=== PATIENT | male | born 1960 | race Caucasian/White ===

== ENCOUNTER 2017-05-15 09:22 | Day surgery (SDC) | payer OTHER, SELFPAY ==
[2017-05-15] VITALS (8 sets, daily range): BP systolic 116–153; BP diastolic 65–110; PULSE 85–102; RESP 16; TEMP 36.7–37.1; O2SAT 93–100; BMI 27.9
--- NOTE | 2017-05-15 06:30 | RAD_ITS ---
STUDY: X-RAY - RIGHT WRIST REASON FOR EXAM: Male, 56 years old. Intraoperative nondiagnostic digital images of ORIF of right wrist. TECHNIQUE: 2 intraoperative nondiagnostic digital view(s) of the wrist were obtained. COMPARISON: April 29, 2017 FINDINGS: Volar plate-screw fixation of the distal radius is present. RAD/Wrist min 3 Views IMPRESSION: Intraoperative digital nondiagnostic documentation images. Electronically Signed: Jaron Sagastume MD at 14:12 EST , Service support ,
--- NOTE | 2017-05-15 09:30 | EKG12_ITS ---
Test Reason : Blood Pressure : / mmHG Vent. Rate : 086 BPM Atrial Rate : 086 BPM P-R Int : 166 ms QRS Dur : 090 ms QT Int : 366 ms P-R-T Axes : 047 -13 020 degrees QTc Int : 437 ms Normal sinus rhythm Normal ECG When compared with ECG of 05-FEB-2012 08:26, No significant change was found Confirmed by GEOVANNI JOSHI ([id number]), graphic editor PAVAN GUMAAN ([id number]) on 05/16/2017 1:34:18 PM Referred By: Rose Main Confirmed By:GEOVANNI JOSHI
[2017-05-15 09:56] LABS: Hematocrit 47.8 % (40-54); Mean Corp Hgb Conc 33.5 g/gl (32-36); Mean Corpuscular Hgb 29.7 pg (27.0-32.0); Mean Corpuscular Volume 88.8 fL (80-94); Mean Platelet Vol. 10.3 fl (6.2-12.0); Platelet Count 261 K/mm3 (150-450); RBC Distribution Width CV 13.1 % (11.6-14.6); RBC Distribution Width SD 42.2 fl (35.1-43.9); Red Blood Count 5.38 M/mm3 (4.6-6.2)
[2017-05-15 09:59] LABS: Scan Indicated on CBC? Y/N NO
[2017-05-15 10:01] LABS: Partial Thromboplast Time 32.2 Seconds (24.1-36.2)
[2017-05-15 10:08] LABS: AST(SGOT) 17 U/L (15-37); Alanine Aminotransfer ALT/SGPT 29 U/L (12-78); Albumin, Serum 4.2 g/dL (3.4-5.0); Alkaline Phosphatase 153 U/L (45-117); Bilirubin, Direct 0.18 mg/dL (0.00-0.30); Globulin 3.7 g/dL (2.2-4.2); Protein, Total 7.9 g/dL (6.4-8.2)
[2017-05-15] MEDS: Clindamycin 900 MG/50 ML BAG 75 MG IV (10:33)
--- NOTE | 2017-05-15 10:38 | PCM.DC.ORTHO ---
Discharge Diet: No Restrictions - leave dressing in place, do not remove unless gets wet/dirty, follow up in office in 2 weeks, move fingers as much as possible and elevate hand above heart, call with concerns Discharge Activity: May Not Drive May shower in (days): 1 Ice area for (Minutes): 20 - Every hour while awake. Weight Bearing Status: Weight bearing as tolerated Keep extremity elevated above heart level: Operative Extremity Call your doctor if your incision/area has: Continuous Slow Oozing, Sudden Increased Bleeding, Increased Pain/ Swelling, Increased Redness, Foul Smelling Discharge Call your doctor if you observe: Fever of 101 or Higher, Coldness, Increased Pain, Numbness or Tingling, Change in Color, Calf discomfort Allergies/Adverse Reactions: Allergies Penicillins [PCN] Allergy (Verified 05/14/17 12:01) Swelling Medications to take at Discharge amlodipine 5 mg tablet 5 mg PO QDAY 05/03/17 ibuprofen 600 mg tablet 600 mg PO ONCE PRN 05/03/17 montelukast 10 mg tablet 10 mg PO DAILY 05/10/17 Albuterol Inhaler [Ventolin Hfa (SP)] 1 - 2 puff INHALATION Q4H PRN PRN 05/14/17 Oxycodone HCl/Acetaminophen [Percocet 5/325] 1 - 2 tablet PO Q6H PRN PRN #42 tablet 05/15/17 The following prescriptions were given: Oxycodone HCl/Acetaminophen [Percocet 5/325] 1 - 2 tablet PO Q6H PRN PRN #42 tablet PRN Reason: Pain Primary Care Physician: Agusto Santizo MD [Primary Care Provider] - Please Follow Up With: Rose Main, - [phone]
--- NOTE | 2017-05-15 10:40 | PCM.OPRPT ---
Report of Operation Date of Procedure: 05/15/17 Pre-Operative Diagnosis: left distal radius fracture/intraarticular w dorsal comminution Post-Operative Diagnosis: same Surgery/Procedure Performed:: orif left distal radius wound care rn: Javi Juarez Type of Anesthesia:: General Anesthesiologist: Kevin Thornton Replaced: 1200cc lr Description of Procedure: preoperative note Patient is a 56-year-old male who fell onto his outstretched right wrist while out with his dog. Immediate pain deformity was seen in the emergency room. My staff member Dr. Thurman then evaluate the patient in the clinic and ordered a CAT scan and then transferred the patient to my care. Patient was seen in the office consulted as far as his wrist benefits alternatives surgery. Risks including but not limited to blood loss, blood clot, infection, neurovascular injury, failure procedure, need for revision surgery, stiffness, arthritis, loss of life and loss of limb. Patient is aware would like to proceed with right distal radius open reduction internal fixation repair is indicated. Operative note Patient seen and examined preoperative holding area. Right arm is marked. Patient is brought to the operating room placed supine on the operating table. Sign, anesthesia, antibiotics were administered. The right arm was prepped and draped in usual sterile fashion after tourniquet was placed on around the upper arm. We then used fluoroscopy to ascertain whether not we were able to reduce the wrist which we were not able to. We then palpated for our FCR centimeter incision on top of that marked it out appropriately. We then elevated exsanguinated the arm and tourniquet was raised her pressure to 50 torr. We then used and then we performed our timeout. We then used a 15 blade to cut through the skin tenotomies to dissect down the level of C arm the FCR fascia was then excised and the FCR was then brought ulnarly we then dissected down to the pronator quadratus which was then excised sharply with a 15 blade at its radial edge. We then used a wooden handle curette to gently debride back the pronator back ulnarly for visualization of the fracture site. We able to visualize the ulnar side fracture site which we were able to then gently released and bringing back up to anatomic alignment and we then attempted to reach to release the brachioradialis which we did and then try to further reduce the fracture volarly by increasing dorsal tilt and being able to tamp up the dorsal aspect of the distal radius which we are unable to do so we then moved to a dorsal Jaron approach. We then made about a 4 cm incision the midline of the distal radius. We dissected down tenotomy syllable of the extensor fascia which was excised and tagged Migel tubercle which was actually comminuted and smashed we then opened up the employee for the EPL were able to visualize the joint surface for our, where combination was dorsally. We used a combination of a [place] elevator and then placed crushed cancellus bone chips into the defect to further prop up the joint surface. Findings multiple planes AP and lateral and lateral 20? to ensure that we had good yazidism of our tilt as well as good yazidism of the articular surface. We then pleased that we then used K wires to fix a R fracture pieces and for better alignment is in multiple planes as well. We then placed our 2.4 variable angle 2: Distal radius plate. We then placed our most distal radial aspect cortical screw was measured and drilled appropriately to be a 2.4 cortex screws with 22 mm 2.4 millimeters screw. Then because of the comminution dorsally placed sequentially core 2.4 locking screws were placed 160 mm 118 mm and 420 mm screws and then did check and multiple planes on fluoroscopy to ensure that they did not encroach the articular surface. We then transfixed the proximal plate to the bone with a standard technique using a 2.7 mm cortex screws. We placed 1-10 mm and 212 mm screws. We irrigated the incision with copious amounts of sterile saline. We then moved back to our dorsal cyst we then were able to close the pedrito of the EPL around that had been tagged during dissection, 2-0 Vicryl and then closed the extensor retinaculum also with 2-0 Vicryl irrigated again and then closed with skin with subcutaneous skin with 2-0 Vicryl and 4-0 Monocryl the volar aspect of the volar incision was closed with 2-0 Vicryl and 4-0 Monocryl as well after placing the pronator quadratus on top of the plate. The patient tourniquet was deflated for total working time of 120 minutes. The patient tolerated procedure well there are no comp occasions. Sterile dressings were applied a splint was applied to the right wrist. The patient was transferred to the recovery room in stable condition. Next Postoperative note Use fingers and thumb as well as his pulse possible next Discussed with billie? outcome of the case Pharmacy has prescription Call with increased pain numbness tingling or further issues arise Follow-up in 2 weeks This note was generated with [employer] dictation software. It may contain incorrect words, spelling, and punctuation that were not noted in checking the note before signing.
[2017-05-15] MEDS: HYDROcodone Bitartrate/Apap 5/325 Tablet PO (15:41)
== END 2017-05-15 18:45 | disposition home or self-care (01) ==
LOC: SDC 09:23 → AC 09:24
PROVIDERS: Anesthesiology; Family Provider Family Medicine; PCP Family Medicine; Visit Provider Orthopaedic Surgery
PROC: (CPT 25609; principal; 2017-05-15 10:50)
DX: S52.571A Other intraarticular fracture of lower end of right radius, initial encounter for closed fracture (principal); W19.XXXA Unspecified fall, initial encounter; Y93.89 Activity, other specified; Y92.9 Unspecified place or not applicable; Y99.8 Other external cause status; I10 Essential (primary) hypertension; J45.909 Unspecified asthma, uncomplicated; R23.3 Spontaneous ecchymoses; Z87.891 Personal history of nicotine dependence
CPT/HCPCS: 25609; 36415; 73110; 76000; 80076; 85027; 85610; 85730; 93005; J7120; A4216; J2405

== ENCOUNTER → 2017-05-28 09:34 | Outpatient (CLI) | payer OTHER, SELFPAY ==
--- NOTE | 2017-05-28 09:37 | RAD_ITS ---
STUDY: X-RAY - RIGHT WRIST REASON FOR EXAM: Male, 56 years old. Postoperative evaluation after ORIF of radius. TECHNIQUE: 3 view(s) of the wrist were obtained. COMPARISON: May 15, 2017 FINDINGS: Volar plate and screw fixation of the distal radius is again identified. There is near-anatomic alignment at the fracture site. Fracture extends into the intra-articular radiocarpal articulation. Again noted is osteopenia with osteoarthritic changes. No complications are noted. RAD/Wrist min 3 Views IMPRESSION: Stable volar plate and screw fixation without complications. Electronically Signed: Jaron Sagastume MD at 13:43 EST , Service support ,
== END ==
PROVIDERS: Family Provider Family Medicine; PCP Family Medicine; Visit Provider Orthopaedic Surgery
DX: S52.571D Other intraarticular fracture of lower end of right radius, subsequent encounter for closed fracture with routine healing (principal); X58.XXXD Exposure to other specified factors, subsequent encounter
CPT/HCPCS: 73110

== ENCOUNTER 2017-08-01 08:00 | Outpatient (RCR) | payer OTHER, SELFPAY ==
--- NOTE | 2017-05-30 16:43 | HP.OTEVAL_ITS ---
Patient's Visit Information MICHAEL ZHU is a 56 year old M, referred to Occupational Therapy by Rose Main DO,, with a diagnosis of ORIF R wrist. Date of Evaluation: 05/30/17 Occupational Therapist: Nancy Richards - Subjective Subjective: Pt., Oscar, arrived and noted that he fell on ice 4 weeks and had surgery weeks ago. Notes he had plate and screws but is unable to recall how many screws.Notes he did need bone graft. 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 - Pain Right Wrist 0 Pain Intensity Range: 2 - ROM Forearm: supination R 0-63, L 0-79 Wrist: felxion R 0-38, L 0-67; ext R 0-16, L 0-48 MP: R 2nd 10-59, 3rd 5-60, 4th 15, 61, 5th 0-66; L 2nd 15-74,3rd 10-73,4th 8-79 PIP: WFL DIP: WFL ROM Comments: Radial Dev R 0-10, L 0-16. Ulnar Dev R 0-9, L 0-24 - Strength Operations Officer: R 20, L 64 Lateral Pinch: R 11, L 16 Tripod Pinch: R 4 , L 13 Tip-to-Tip Pinch: R 4 , L 10 - Edema Proximal Phalanx: R 2nd 8, 3rd 8 cm, 4th 7.2 cm, 5th 6.8 cm; L 2nd 7.2 cm, 3rd 7.2, 4th 7.5 Other: 5th 6.5 cm - Sensation Sensation Comments: Denies numbness and tingling. - In-Hand Manipulation Finger to Palm Translation: Moderate - Right, Normal - Left Palm to Finger Translation: Mild - Right, Moderate - Right, Normal - Left Shift: Mild - Right, Normal - Left Rotation: Mild - Right, Normal - Left - DASH-Disabilities of Arm, Shoulder& Hand DASH Sum: 64 - Goals Goal:: Oscar to increase R tip cutter by 30-40 lbs to promote increased ability to complete manipulation tasks required for ADl/IADLS 2/3 trials 80% of the time by d/c. Goal:: Oscar to increase ROM of R wrist and hand to that of L nonaffected hand to promote increased ability to manipulate objects by time of d/c. Goal:: Oscar to be (i) to complete edemea management activities to promote decreased edema and promote increased ROM 4/5 trials 80% of the time to return to PLOF by d/c. Goal:: Oscar to return to completing all ADls/IADLs with R hand inlcuding cutting food, picking up coins, and completing shoveling tasks 2/3 trials 80% fo the time to rpomtoe (I) and returning to PLOF by d/c. Goal:: Oscar to increase R fx pinches to that within 2-3 lbs of L hand 2/3 trials 75% of the time by d/c. - Rehabilitation General Assessment: Oscar is s/p R wrist ORIF with plate, bone graft, and screws. He is currentlyout of surgery two weeks and is to be wearing splint during communoty outings per Pt. report. He has limited ROM and strength at this time which is limiting ADl/IADls. OT to address ROM, strength, and ability to complete fx task with R affected hand at PLOF. Rehabilitation Potential: Excellent - Anticipated Interventions Anticipated Interventions: A/AAROM/PROM, Strengthening, Edema Control, Scar Care , Massage, Sensory Retraining, Wound Care, Modalities, Orthoses, Joint Protection/Energy Conservation, Fine Motor Coord/Shade, Cognitive Skills, ADL Training, Caregiver Training, Home Program - Visit Plan Frequency: 2x /Week Duration: 4-6 Weeks General Plan: Oscar to be seen by OT to complete tx to R wrist and hand. OT to work on increasign ROM, strength, bilateral manipulation, FMC, and geenral return to use of R hand ahdn wrist at PLOF to promote (i) in ADL/IADls. TEXT: Thank you for the opportunity to evaluate your patient. For Medicare and Medicare HMO plans, please review the plan of care and approve it. It will need to be FAXED BACK to us at [phone] for Medicare purposes. Please let me know if there are questions or concerns regarding this plan of care. Physician Signature: Date:
--- NOTE | 2017-05-30 16:44 | HP.OTEVAL_ITS ---
Patient's Visit Information MICHAEL ZHU is a 56 year old M, referred to Occupational Therapy by Rose Main DO,, with a diagnosis of ORIF R wrist. Date of Evaluation: 05/30/17 Occupational Therapist: Nancy Richards - Subjective Subjective: Pt., Oscar, arrived and noted that he fell on ice 4 weeks and had surgery weeks ago. Notes he has plate and screws as well a bone graft. 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 He is L hand dominant. - Pain Right Wrist 0 Pain Intensity Range: 2 - ROM Forearm: supination R 0-63, L 0-79 Wrist: felxion R 0-38, L 0-67; ext R 0-16, L 0-48 MP: R 2nd 10-59, 3rd 5-60, 4th 15, 61, 5th 0-66; L 2nd 15-74,3rd 10-73,4th 8-79 PIP: WFL DIP: WFL ROM Comments: Radial Dev R 0-10, L 0-16. Ulnar Dev R 0-9, L 0-24 - Strength Corporate Services Manager: R 20, L 64 Lateral Pinch: R 11, L 16 Tripod Pinch: R 4 , L 13 Tip-to-Tip Pinch: R 4 , L 10 - Edema Proximal Phalanx: R 2nd 8, 3rd 8 cm, 4th 7.2 cm, 5th 6.8 cm; L 2nd 7.2 cm, 3rd 7.2, 4th 7.5 Other: 5th 6.5 cm - Sensation Sensation Comments: Denies numbness and tingling. - In-Hand Manipulation Finger to Palm Translation: Moderate - Right, Normal - Left Palm to Finger Translation: Mild - Right, Moderate - Right, Normal - Left Shift: Mild - Right, Normal - Left Rotation: Mild - Right, Normal - Left - DASH-Disabilities of Arm, Shoulder& Hand DASH Sum: 64 - Goals Goal:: Oscar to increase R ground crew lines person by 30-40 lbs to promote increased ability to complete manipulation tasks required for ADl/IADLS 2/3 trials 80% of the time by d/c. Goal:: Oscar to increase ROM of R wrist and hand to that of L nonaffected hand to promote increased ability to manipulate objects by time of d/c. Goal:: Oscar to be (i) to complete edemea management activities to promote decreased edema and promote increased ROM 4/5 trials 80% of the time to return to PLOF by d/c. Goal:: Oscar to return to completing all ADls/IADLs with R hand inlcuding cutting food, picking up coins, and completing shoveling tasks 2/3 trials 80% fo the time to rpomtoe (I) and returning to PLOF by d/c. Goal:: Oscar to increase R fx pinches to that within 2-3 lbs of L hand 2/3 trials 75% of the time by d/c. - Rehabilitation General Assessment: Oscar is s/p R wrist ORIF with plate, bone graft, and screws. He is currently s/p surgery two weeks and is to be wearing splint during community outings per doctors orders. He has limited ROM and strength at this time which is limiting ADl/IADls. OT to address ROM, strength, and ability to complete fx task with R affected hand at PLOF. Rehabilitation Potential: Excellent - Anticipated Interventions Anticipated Interventions: A/AAROM/PROM, Strengthening, Edema Control, Scar Care , Massage, Sensory Retraining, Wound Care, Modalities, Orthoses, Joint Protection/Energy Conservation, Fine Motor Coord/Shade, Cognitive Skills, ADL Training, Caregiver Training, Home Program - Visit Plan Frequency: 2x /Week Duration: 4-6 Weeks General Plan: Oscar to be seen by OT to complete tx to R wrist and hand. OT to work on increasing ROM, strength, bilateral manipulation, FMC, and general return to use of R hand hand wrist at PLOF to promote (i) in ADL/IADls. TEXT: Thank you for the opportunity to evaluate your patient. For Medicare and Medicare HMO plans, please review the plan of care and approve it. It will need to be FAXED BACK to us at [phone] for Medicare purposes. Please let me know if there are questions or concerns regarding this plan of care. Physician Signature: Date:
--- NOTE | 2017-07-08 08:40 | OTREVAL_ITS ---
Rose Main DO, It has been my pleasure to treat MICHAEL ZHU over the last 12 visits for ORIF R wrist. Please see the progress note below for an update on the occupational therapy plan of care! Subjective: Arrived and noted stiffness as usual but no pain. Notes exercises at home are ok. Pt. rated 65% out of 100% back to PLOF. Objective/Function: Completed reassessment on this date. Stiffness persists in R affected hand compared to L dominant hand. Meausremtns progressed from last session. Measurements taken post PB and are as follows: ROM flexion R 0-49, L 0- 79; ext R 0-45, L 0-49; radial dev R 0-13, L 0-20; ulnar dev R 0-11, L 0-25; supination WFL. Strength is as follows: quality control manager R 56, L 90; lateral R 20, L 23; three jaw R 18, L 20; tip pinch R 14, L 19. Plan Frequency: 2x /Week Duration: 3 Weeks Plan: continue POC. Has appointment already scheduled for thrusday. Will continue 3x weeks for POC. Adding 1x appointment next week and then following up in two weeks. Tenative d/c after last follow up appointment. Goals - Goals Goal:: Oscar to increase R quality control manager by 30-40 lbs to promote increased ability to complete manipulation tasks required for ADl/IADLS 2/3 trials 80% of the time by d/c. Goal:: Oscar to increase ROM of R wrist and hand to that of L nonaffected hand to promote increased ability to manipulate objects by time of d/c. Goal:: Oscar to be (i) to complete edemea management activities to promote decreased edema and promote increased ROM 4/5 trials 80% of the time to return to PLOF by d/c. Goal:: Oscar to return to completing all ADls/IADLs with R hand inlcuding cutting food, picking up coins, and completing shoveling tasks 2/3 trials 80% fo the time to rpomtoe (I) and returning to PLOF by d/c. Goal:: Oscar to increase R fx pinches to that within 2-3 lbs of L hand 2/3 trials 75% of the time by d/c. Anticipated Interventions Anticipated Interventions: A/AAROM/PROM, Strengthening, Edema Control, Scar Care , Massage, Sensory Retraining, Wound Care, Modalities, Orthoses, Joint Protection/Energy Conservation, Fine Motor Coord/Shade, Cognitive Skills, ADL Training, Caregiver Training, Home Program Please do not hesitate to contact me at [phone] by phone or Fax: if you have questions or concerns regarding this new plan of care! Sincerely, Nancy Richards
--- NOTE | 2017-08-01 08:29 | HP.OTDCSUM_ITS ---
HP - OT D/C Summary It has been my pleasure to treat MICHAEL ZHU under orders from Rose Main DO, for the diagnosis of ORIF R wrist for a total of 15 visit(s). Please see the following information for a summary of their discharge status. - Objective Objective/Function: Pt. arrived and reassessment completed on this date. He is doing well and has significant progressed in strength since inital eval. Pt. L Hand dominant. Injury to R hand. ROM measurement are as follows: forearm supination R 0-56, L 0-80; wrist flexion R 0-36, L 0-73; ext R 0-42, L 0-50; radial dev R 0-20, L 0-23; ulnar dev R 0-28, L 0-30 degrees. Strength measurements are as follows: copy center operator R 80, L 90 lbs, lateral R 24, L 23; three jaw R 22, L 23; tip pinch R 18, L 21. DASH score progressed from 62 to 39 showing increased in performance of R hand and wrist. He will be d/c'd on this date. - Goals Patient Goals: Regain Mobility, Regain Strength, Decrease Pain, Return to Work, Decrease Swelling/Stiffness, Improve Fine Motor Skills, Use Hand/Wrist/Arm Normally Again, Sleep Better, Decrease Tingling/Numbness, Increase ROM, Be More Independent in ADLS, Decrease Sensitivity, Resume Former Household Responsibilities (Cooking,Cleaning,Yard, etc.), Resume Hobbies Goal:: Oscar to increase R copy center operator by 30-40 lbs to promote increased ability to complete manipulation tasks required for ADl/IADLS 2/3 trials 80% of the time by d/c. Goal:: Oscar to increase ROM of R wrist and hand to that of L nonaffected hand to promote increased ability to manipulate objects by time of d/c. Goal:: Oscar to be (i) to complete edemea management activities to promote decreased edema and promote increased ROM 4/5 trials 80% of the time to return to PLOF by d/c. Goal:: Oscar to return to completing all ADls/IADLs with R hand inlcuding cutting food, picking up coins, and completing shoveling tasks 2/3 trials 80% fo the time to rpomtoe (I) and returning to PLOF by d/c. Goal:: Oscar to increase R fx pinches to that within 2-3 lbs of L hand 2/3 trials 75% of the time by d/c. - Plan Plan: Pt. to be d/c'd on this date. He is to call with questions/concerns. He verbalized understanding of continuing to work ROM and strength. - D/C Information If there are questions or concerns regarding this patient's occupational therapy , please fell free to call me at [phone]. Thank you for the referral of this patient. Sincerely, Nancy Richards
== END 2017-08-01 19:00 | disposition home or self-care (01) ==
LOC: OT 08:00
PROVIDERS: Family Provider Family Medicine; PCP Family Medicine; Visit Provider Orthopaedic Surgery
DX: Z98.890 Other specified postprocedural states (principal)
CPT/HCPCS: 97110; 97140; 97166; 97168; 97530

== ENCOUNTER → 2017-09-10 08:03 | Outpatient (CLI) | payer OTHER, SELFPAY ==
[2017-09-10 10:55] LABS: Anion Gap 8 (5-15); BUN 13 mg/dL (7-18); BUN/Creat Ratio 14.5 RATIO (10-20); Calcium,Total 8.7 mg/dL (8.5-10.1); Chloride 108 mmol/L (98-107); Cholesterol 181 mg/dL (200); EST Glomerular Filtration Rate 92 mL/min (>60); Est Glom Filt Rate - Afr Amer 112 mL/min (>60); Glucose 91 mg/dL (74-106); High Density Lipoprotein 41 mg/dL; PSA,Total - Annual Screen 0.88 ng/mL (0.00-4.00); Potassium 3.8 mmol/L (3.5-5.1); Sodium Level 143 mmol/L (136-145); Triglycerides 80 mg/dL; Very Low Density Lipoprotein 16 mg/dL (5-40)
== END ==
PROVIDERS: Family Provider Family Medicine; PCP Family Medicine; Visit Provider Family Medicine
DX: I10 Essential (primary) hypertension (principal); E78.00 Pure hypercholesterolemia, unspecified; Z12.5 Encounter for screening for malignant neoplasm of prostate
CPT/HCPCS: 36415; 80048; 80061; 84153; G0103

== ENCOUNTER → 2018-09-22 | Outpatient (CLI) | payer OTHER, SELFPAY ==
[2018-09-22 11:17] LABS: Anion Gap 6 (5-15); BUN 12 mg/dL (7-18); BUN/Creat Ratio 12.9 RATIO (10-20); Calcium,Total 9.2 mg/dL (8.5-10.1); Chloride 105 mmol/L (98-107); Cholesterol 216 mg/dL (200); Creatinine, Serum 0.93 mg/dL (0.70-1.30); EST Glomerular Filtration Rate 89 mL/min (>60); Est Glom Filt Rate - Afr Amer 107 mL/min (>60); Glucose 101 mg/dL (74-106); High Density Lipoprotein 47 mg/dL; PSA,Total - Annual Screen 0.83 ng/mL (0.00-4.00); Potassium 3.7 mmol/L (3.5-5.1); Sodium Level 139 mmol/L (136-145); Triglycerides 109 mg/dL; Very Low Density Lipoprotein 22 mg/dL (5-40)
== END | disposition home or self-care (01) ==
PROVIDERS: Family Provider Family Medicine; PCP Family Medicine; Visit Provider Family Medicine
DX: I10 Essential (primary) hypertension (principal); E78.00 Pure hypercholesterolemia, unspecified; Z12.5 Encounter for screening for malignant neoplasm of prostate
CPT/HCPCS: 36415; 80048; 80061; 84153; G0103

== ENCOUNTER → 2019-09-18 08:05 | Outpatient (CLI) | payer OTHER, SELFPAY ==
[2019-09-18 10:29] LABS: ALB/GLOB Ratio 1.1 RATIO (0.9-2.4); AST(SGOT) 18 U/L (15-37); Alanine Aminotransfer ALT/SGPT 26 U/L (16-61); Albumin, Serum 3.9 g/dL (3.2-5.0); Alkaline Phosphatase 100 U/L (45-117); Anion Gap 6 (5-15); BUN 12 mg/dL (7-18); BUN/Creat Ratio 12.9 RATIO (10-20); Chloride 107 mmol/L (98-107); Cholesterol 197 mg/dL (200); Creatinine, Serum 0.93 mg/dL (0.70-1.30); EST Glomerular Filtration Rate 88 mL/min (>60); Est Glom Filt Rate - Afr Amer 107 mL/min (>60); Globulin 3.4 g/dL (2.2-4.2); Glucose 84 mg/dL (74-106); High Density Lipoprotein 43 mg/dL; PSA,Total - Annual Screen 0.66 ng/mL (0.00-4.00); Potassium 3.8 mmol/L (3.5-5.1); Protein, Total 7.3 g/dL (6.4-8.2); Sodium Level 141 mmol/L (136-145); Triglycerides 95 mg/dL; Very Low Density Lipoprotein 19 mg/dL (5-40)
== END ==
PROVIDERS: PCP Family Medicine; Referring Provider Family Medicine; Visit Provider Family Medicine
DX: I10 Essential (primary) hypertension (principal); E78.00 Pure hypercholesterolemia, unspecified; Z12.5 Encounter for screening for malignant neoplasm of prostate
CPT/HCPCS: 36415; 80053; 80061; 84153; G0103

== ENCOUNTER → 2020-03-21 08:00 | Outpatient (CLI) | payer OTHER, SELFPAY ==
[2020-03-21 10:00] LABS: ALB/GLOB Ratio 1.2 RATIO (0.9-2.4); AST(SGOT) 19 U/L (15-37); Alanine Aminotransfer ALT/SGPT 35 U/L (16-61); Alkaline Phosphatase 121 U/L (45-117); Anion Gap 4 (5-15); BUN 10 mg/dL (7-18); BUN/Creat Ratio 10.3 RATIO (10-20); Calcium,Total 8.8 mg/dL (8.5-10.1); Chloride 106 mmol/L (98-107); Cholesterol 134 mg/dL (200); Creatinine, Serum 0.97 mg/dL (0.70-1.30); EST Glomerular Filtration Rate 84 mL/min (>60); Est Glom Filt Rate - Afr Amer 101 mL/min (>60); Globulin 3.2 g/dL (2.2-4.2); Glucose 91 mg/dL (74-106); High Density Lipoprotein 46 mg/dL; Potassium 3.7 mmol/L (3.5-5.1); Protein, Total 7.2 g/dL (6.4-8.2); Sodium Level 139 mmol/L (136-145); Triglycerides 65 mg/dL
[2020-03-21 10:01] LABS: Very Low Density Lipoprotein 13 mg/dL (5-40)
== END ==
PROVIDERS: PCP Family Medicine; Referring Provider Family Medicine; Visit Provider Family Medicine
DX: I10 Essential (primary) hypertension (principal)
CPT/HCPCS: 36415; 80053; 80061

== ENCOUNTER 2020-06-30 11:18 | Outpatient (RCR) | payer OTHER, SELFPAY ==
[2020-06-30] MEDS: COVID-19 VACC, MRNA(PFIZER)/PF 30 MCG/0.3 ML SYRINGE IM (10:28)
[2020-07-21] MEDS: COVID-19 VACC, MRNA(PFIZER)/PF 30 MCG/0.3 ML SYRINGE IM (10:16)
== END 2020-09-27 23:59 ==
LOC: IMMUN 11:18
PROVIDERS: PCP Family Medicine; Visit Provider Family Medicine
DX: Z23 Encounter for immunization (principal)
CPT/HCPCS: 0001A; 0002A; 91300

== ENCOUNTER → 2021-03-22 08:23 | Outpatient (CLI) | payer OTHER, SELFPAY ==
[2021-03-22 10:41] LABS: ALB/GLOB Ratio 1.1 RATIO (0.9-2.4); AST(SGOT) 19 U/L (15-37); Alanine Aminotransfer ALT/SGPT 33 U/L (16-61); Albumin, Serum 3.8 g/dL (3.2-5.0); Alkaline Phosphatase 111 U/L (45-117); Anion Gap 8 (5-15); BUN 14 mg/dL (7-18); BUN/Creat Ratio 15.2 RATIO (10-20); Chloride 104 mmol/L (98-107); Cholesterol 128 mg/dL (200); Creatinine, Serum 0.92 mg/dL (0.70-1.30); EST Glomerular Filtration Rate 89 mL/min (>60); Est Glom Filt Rate - Afr Amer 107 mL/min (>60); Globulin 3.6 g/dL (2.2-4.2); Glucose 85 mg/dL (74-106); High Density Lipoprotein 44 mg/dL; PSA,Total - Annual Screen 0.87 ng/mL (0.00-4.00); Protein, Total 7.4 g/dL (6.4-8.2); Sodium Level 141 mmol/L (136-145); Triglycerides 74 mg/dL; Very Low Density Lipoprotein 15 mg/dL (5-40)
== END ==
LOC: MFPLAB 08:25
PROVIDERS: PCP Registered Nurse; Referring Provider Registered Nurse; Visit Provider Registered Nurse
DX: I10 Essential (primary) hypertension (principal); Z12.5 Encounter for screening for malignant neoplasm of prostate
CPT/HCPCS: 36415; 80053; 80061; 84153; G0103

== ENCOUNTER → 2022-04-18 | Outpatient (CLI) | payer OTHER, SELFPAY ==
[2022-04-18 09:37] LABS: Absolute Lymphocyte Count 1.75 X10^3/uL (0.83-4.51); Absolute Neutrophil Count 4.6 X10^3/uL (2.0-7.7); Basophil# 0.06 X10^3/uL; Basophil% 0.8 % (0-1); Eosinophil# 0.17 X10^3/uL; Eosinophils% 2.4 % (0-5); Hematocrit 47.1 % (40-54); Hemoglobin 15.7 g/dL (13.0-16.5); Lymphocyte # 1.75 X10^3/ul (0.83-4.51); Lymphocyte % 24.2 % (19-41); Mean Corp Hgb Conc 33.3 g/dL (32-36); Mean Corpuscular Hgb 30.2 pg (27.0-32.0); Mean Corpuscular Volume 90.6 fL (80-94); Mean Platelet Vol. 9.8 fl (6.2-12.0); Monocyte# 0.59 X10^3/uL; Monocyte% 8.2 % (0-10); NRBC Flagged by Analyzer 0 % (0-5); Neutrophil # 4.64 X10^3/uL (2.7-7.7); Neutrophil % 64.1 % (47-70); Platelet Count 256 K/mm3 (150-450); RBC Distribution Width SD 42.7 fl (35.1-43.9); White Blood Count 7.2 K/mm3 (4.4-11.0)
[2022-04-18 09:55] LABS: Microalbumin,Random Urine 20.5 mg/L (NO RANGE EST.)
[2022-04-18 10:04] LABS: ALB/GLOB Ratio 1.4 RATIO (0.9-2.4); AST(SGOT) 21 U/L (15-37); Alanine Aminotransfer ALT/SGPT 32 U/L (16-61); Albumin, Serum 3.9 g/dL (3.2-5.0); Alkaline Phosphatase 89 U/L (45-117); Anion Gap 4 (5-15); BUN 11 mg/dL (7-18); BUN/Creat Ratio 11.8 RATIO (10-20); Calcium,Total 9.3 mg/dL (8.5-10.1); Chloride 108 mmol/L (98-107); Cholesterol 163 mg/dL (200); Creatinine, Serum 0.94 mg/dL (0.70-1.30); EST Glomerular Filtration Rate 87 mL/min (>60); Est Glom Filt Rate - Afr Amer 105 mL/min (>60); Globulin 2.8 g/dL (2.2-4.2); Glucose 93 mg/dL (74-106); High Density Lipoprotein 57 mg/dL; Protein, Total 6.7 g/dL (6.4-8.2); Sodium Level 143 mmol/L (136-145); Triglycerides 68 mg/dL; Very Low Density Lipoprotein 14 mg/dL (5-40)
== END | disposition home or self-care (01) ==
LOC: LAB 09:13
PROVIDERS: PCP Family Medicine; Visit Provider Family Medicine
DX: I10 Essential (primary) hypertension (principal); E78.00 Pure hypercholesterolemia, unspecified
CPT/HCPCS: 36415; 80053; 80061; 82043; 85025

== ENCOUNTER → 2023-11-06 | Outpatient (CLI) | payer OTHER, SELFPAY ==
[2023-11-06 14:57] LABS: Hematocrit 47.7 % (40-54); Hemoglobin 15.3 g/dL (13.0-16.5); Mean Corp Hgb Conc 32.1 g/dL (32-36); Mean Corpuscular Hgb 29.3 pg (27.0-32.0); Mean Corpuscular Volume 91.4 fL (80-94); Mean Platelet Vol. 10.4 fl (6.2-12.0); Platelet Count 253 K/mm3 (150-450); RBC Distribution Width CV 13.1 % (11.6-14.6); RBC Distribution Width SD 43.6 fl (35.1-43.9); Red Blood Count 5.22 M/mm3 (4.6-6.2); White Blood Count 6.4 K/mm3 (4.4-11.0)
[2023-11-06 15:12] LABS: Vitamin D,25 Hydroxy 44.6 ng/mL
[2023-11-06 15:16] LABS: ALB/GLOB Ratio 1.2 RATIO (0.9-2.4); AST(SGOT) 20 U/L (15-37); Alanine Aminotransfer ALT/SGPT 26 U/L (16-61); Albumin, Serum 4.1 g/dL (3.2-5.0); Alkaline Phosphatase 104 U/L (45-117); Anion Gap 5 (5-15); BUN 13 mg/dL (7-18); BUN/Creat Ratio 13.6 RATIO (10-20); Calcium,Total 9.2 mg/dL (8.5-10.1); Chloride 103 mmol/L (98-107); Cholesterol 127 mg/dL (200); Creatinine, Serum 0.96 mg/dL (0.70-1.30); EST Glomerular Filtration Rate 84 mL/min (>60); Est Glom Filt Rate - Afr Amer 102 mL/min (>60); Globulin 3.4 g/dL (2.2-4.2); Glucose 87 mg/dL (74-106); High Density Lipoprotein 45 mg/dL; PSA,Total - Annual Screen 0.64 ng/mL (0.00-4.00); Potassium 3.9 mmol/L (3.5-5.1); Protein, Total 7.5 g/dL (6.4-8.2); Rheumatoid Factor < 10.0 IU/mL (<15); Sodium Level 138 mmol/L (136-145); Triglycerides 103 mg/dL; Very Low Density Lipoprotein 21 mg/dL (5-40)
== END | disposition home or self-care (01) ==
LOC: MFPLAB 10:57
PROVIDERS: PCP Family Medicine; Visit Provider Family Medicine
DX: Z12.5 Encounter for screening for malignant neoplasm of prostate (principal); M79.643 Pain in unspecified hand; G47.33 Obstructive sleep apnea (adult) (pediatric); E78.00 Pure hypercholesterolemia, unspecified; I10 Essential (primary) hypertension
CPT/HCPCS: 36415; 80053; 80061; 82306; 84153; 85027; 86431; G0103

== ENCOUNTER → 2024-11-12 | Outpatient (CLI) | payer OTHER, SELFPAY | END | disposition home or self-care (01) | LOC: LAB 11:14 | PROVIDERS: PCP Family Medicine; Referring Provider Family Medicine; Visit Provider Family Medicine | DX: Z00.00 Encounter for general adult medical examination without abnormal findings (principal) ==

== ENCOUNTER → 2024-11-24 | Outpatient (CLI) | payer OTHER, SELFPAY ==
--- OUTSIDE RECORDS SUMMARY | 2024-11-24 11:10 | XMS RPT_ITS | CCD ---
Author Organization [facility] Care Team Providers Care Tube Blower Name Role Phone Fede Sanchez MD Primary Care Provider [phone] Fede Sanchez MD Attending Provider Fede Sanchez MD Referring Provider Fede Sanchez Referring Unavailable Fede Sanchez Attending Unavailable Fede Sanchez Primary Care Unavailable Allergies Allergy Classification Reported Allergen(s) Allergy Type Date of Onset Reaction(s) Facility (2 sources) Penicillins Allergy to substance 09-03-2017 [facility] (1 source) Penicillins Drug allergy (disorder) 09-03-2017 [facility] Medications Current Medications Medication Drug Class(es) Dates Sig (Normalized) Sig (Original) [id number] 60 actuat albuterol 0.09 mg/actuat metered dose inhaler (2 sources) beta2-Adrenergic Agonist Start: 05-14-2017 Albuterol Sulfate 1 INHALER inhaler Active 1 - 2 NMA INHALATION EVERY 4 HOURS NEEDED as needed for Sob &/Or Wheezing May 14, 2017 1:00am Start: 05-14-2017 take 1 puff(s) by in halation every four hours as needed Albuterol Sulfate Active 1 - 2 PUFF INHALATION EVERY 4 HOURS NEEDED May 14, 2017 12:00am amLODIPine 5 mg oral tablet (2 sources) Dihydropyridine Calcium Channel Johnathan Start: 05-03-2017 take 1 tablet by mouth once daily Amlodipine 5 mg tablet Active 5 mg PO daily May 03, 2017 1:00am ibuprofen 600 mg oral tablet (2 sources) Nonsteroidal Anti-inflammatory Drug Start: 05-03-2017 take 1 tablet by mouth once as needed for pain Ibuprofen 600 mg tablet Active 600 mg PO ONCE as needed for pain May 03, 2017 1:00am montelukast 10 mg oral tablet (2 sources) Leukotriene Receptor Antagonist Start: 05-10-2017 take 1 tablet by mouth once daily Montelukast (Singulair) 10 mg tablet Active 10 mg PO DAILY May 10, 2017 1:00am Completed/Discontinued Medications Medication Drug Class(es) Dates Sig (Normalized) Sig (Original) acetaminophen 325 mg / oxyCODONE hydrochloride 5 mg oral tablet (4 sources) Opioid Agonist Start: 05-15-2017 End: 05-28-2017 Oxycodone-Acetaminoph en 1 TABLET tablet Discontinued 1 - 2 {tbl} PO EVERY 6 HOURS NEEDED as needed for Pain May 15, 2017 1:00am May 28, 2017 10:16am Postoperative pain Fracture of distal end of right radius Other acute postprocedural pain Start: 05-15-2017 End: 05-28-2017 take 1 tablet by mouth every six hours as needed Oxycodone-Acetaminophen Discontinued 1 - 2 TABLET PO EVERY 6 HOURS NEEDED May 15, 2017 12:00am May 28, 2017 9:16am Start: 04-29-2017 End: 05-03-2017 Oxycodone-Acetaminophen 1 TA BLET tablet Discontinued 1 {tbl} PO EVERY 6 HOURS NEEDED as needed for wrist pain April 29, 2017 1:00am May 03, 2017 3:56pm Fracture of right wrist Start: 04-29-2017 End: 05-03-2017 take 1 tablet by mouth every six hours as needed Oxycodone-Acetaminophen Discontinued 1 TABLET PO EVERY 6 HOURS NEEDED April 29, 2017 12:00am May 03, 2017 2:56pm Results Test Name Value Interpretation Reference Range Facil ity Absolute lymphocyte counton 04-18-2022 Lymphocytes Auto (Unsp spec) [#/Vol] 1.75 10*3/uL 0.83-4.51 [facility] Work Phone: Basophil percentageon 2021 Basophils/100 WBC (Bld) 0.8 % 0-1 [facility] Work Phone: Bilirubin [Mass/Vol] 1.00 mg/dL 0.20-1.00 [facility] Work Phone: Comment on above: For patients on eltr ombopag therapy, use of Dimension [place] TBIL is not recommended. Chloride [Moles/Vol] 108 mmol/L 98-107 [facility] Work Phone: Cholesterol [Mass/Vol] 163 mg/dL <200 [facility] Work Phone: Comment on above: <200 mg/dL Desirable 200-240 mg/dL Borderline >240 mg/dL High Risk Eosinophils/100 WBC (Bld) 2.4 % 0-5 [facility] Work Phone: Glucose [Mass/Vol] 93 mg/dL 74-106 [facility] Work Phone: Neutrophils (Bld) [#/Vol] 4.6 10*3/uL 2.0-7.7 [facility] Work Phone: Neutrophils/100 WBC (Bld) 64.1 % 47-70 [facility] Work Phone: Potassium [Moles/Vol] 4.0 mmol/L 3.5-5.1 [facility] Work Phone: Protein [Mass/Vol] 6.7 g/dL 6.4-8.2 [facility] Work Phone: Sodium [Moles/Vol] 143 mmol/L 136-145 [facility] Work Phone: Triglyceride [Mass/Vol] 68 mg/dL <199 [facility] Work Phone: Comment on above: The drugs N-Acetylcy steine and Metamizole may falsely depress this assay.Serum Triglycerides Reference Interval Normal <150 mg/dL Borderline high 150 - 199 mg/dL High 200 - 499 mg/dL Very High > or = 500 mg/dL WBC (Bld) [#/Vol] 7.2 10*3/uL 4.4-11.0 [facility] Work Phone: Blood erythrocytes count (nu mber/volume)on 04-18-2022 RBC (Bld) [#/Vol] 5.20 10*6/uL 4.6-6.2 [facility] Work Phone: Blood hemoglobin measurement (mass/volume)on 04-18-2022 Hemoglobin (Bld) [Mass/Vol] 15.7 g/dL 13.0-16.5 [facility] Work Phone: Blood lymphocytes/100 leukoc yteson 04-18-2022 Lymphocytes/100 WBC (Bld) 24.2 % 19-41 [facility] Work Phone: Blood monocytes/100 leukocyt eson 04-18-2022 Monocytes/100 WBC (Bld) 8.2 % 0-10 [facility] Work Phone: Blood platelet mean volumeon 04-18-2022 Platelet mean volume (Bld) [Entitic vol] 9.8 fL 6.2-12.0 [facility] Work Phone: Determination of erythrocyte mean corpuscular volume (MCV)on 04-18-2022 MCV (RBC) [Entitic vol] 90.6 fL 80-94 [facility] Work Phone: Hematocrit Auto (Bld) [Volum e fraction]on 04-18-2022 Hematocrit (Bld) [Volume fraction] 47.1 % 40-54 [facility] Work Phone: Laboratory - Chemistry and C hemistry - challengeon 04-18-2022 ALP [Catalytic activity/Vol] 89 U/L 45-117 [facility] Work Phone: ALT [Catalytic activity/Vol] 32 U/L 16-61 [facility] Work Phone: CO2 [Moles/Vol] 31.0 mmol/L 21.0-32.0 [facility] Work Phone: Globulin (S) [Mass/Vol] 2.8 g/dL 2.2-4.2 [facility] Work Phone: Urea nitrogen/Creatinine [Mass ratio] 11.8 mg/mg 10-20 [facility] Work Phone: Laboratory - Hematology and Cell countson 04-18-2022 Erythrocyte distribution width (RBC) [Entitic vol] 42.7 fL 35.1-43.9 [facility] Work Phone: Erythrocyte distribution width (RBC) [Ratio] 13.0 % 11.6-14.6 [facility] Work Phone: Immature granulocytes/100 WBC (Bld) 0.300 % 0.0-0.9 [facility] Work Phone: Comment on above: IG% - Immature Granu locytes (promyelocytes, myelocytes and metamyelocytes) > 1% indicates that a LEFT SHIFT is Present. MCH (RBC) [Entitic mass] 30.2 pg 27.0-32.0 [facility] Work Phone: Nucleated RBC/100 WBC (Bld) [Ratio] 0 % 0-5 [facility] Work Phone: MCHC Auto (RBC) [Mass/Vol]on 04-18-2022 MCHC (RBC) [Mass/Vol] 33.3 g/dL 32-36 [facility] Work Phone: No Panel Informationon 04-18 Estimated GFR (MDRD) Amer 105 mL/min >60 [facility] Work Phone: Comment on above: GFR Calc Estimated GFR (MDRD) Non-Af Amer 87 mL/min >60 [facility] Work Phone: Comment on above: Non- GFR Calc Platelets bldon 04-18-2022 Platelets (Bld) [#/Vol] 256 10*3/uL 150-450 [facility] Work Phone: Serum or plasma albumin davida urement (mass/volume)on 04-18-2022 Albumin [Mass/Vol] 3.9 g/dL 3.2-5.0 [facility] Work Phone: Serum or plasma albumin/glob ulin mass ratioon 04-18-2022 Albumin/Globulin [Mass ratio] 1.4 {ratio} 0.9-2.4 [facility] Work Phone: Serum or plasma calcium davida urement (mass/volume)on 04-18-2022 Calcium [Mass/Vol] 9.3 mg/dL 8.5-10.1 [facility] Work Phone: Serum or plasma cholesterol in HDL measurement (mass/volume)on 04-18-2022 Cholesterol in HDL [Mass/Vol] 57 mg/dL >40 [facility] Work Phone: Comment on above: The drugs N-Acetylcy steine and Metamizole may falsely depress this assay. Reference Range HDL <40 mg/dL Low HDL Cholesterol HDL >or= 60 mg/dL High HDL Cholesterol Serum or plasma cholesterol in VLDL measurement (mass/volume)on 04-18-2022 Cholesterol in VLDL [Mass/Vol] 14 mg/dL 5-40 [facility] Work Phone: Serum or plasma creatinine m easurement (mass/volume)on 04-18-2022 Creatinine [Mass/Vol] 0.94 mg/dL 0.70-1.30 [facility] Work Phone: Comment on above: The validity of the calculated GFR & GFRAA in patients over 70 years has not been determined. Clinical correlation is essential. Serum or plasma low density lipoprotein (LDL) cholesterol measurement (mass/volume)on 04-18-2022 Cholesterol in LDL [Mass/Vol] 92 mg/dL 0-130 [facility] Work Phone: Serum or plasma urea nitroge n measurement (mass/volume)on 04-18-2022 Urea nitrogen [Mass/Vol] 11 mg/dL 7-18 [facility] Work Phone: Thin prep Papanicolaou smear with manual screeningon 04-18-2022 Thin prep Papanicolaou smear with manual screening 21 U/L 15-37 [facility] Work Phone: Thin prep Papanicolaou smear with manual screening 4 5-15 [facility] Work Phone: Thin prep Papanicolaou smear with manual screening 20.5 mg/L NO RANGE EST. [facility] Work Phone: Encounters Encounter Date Encounter Type Care Provider Facility Start: 11-17-2024 Encounter for genera l adult medical examination without abnormal findings Fede Sanchez [facility] Start: 11-12-2024 End: 11-12-2024 ambulatory Fede Sanchez MD Work Phone: -Laboratory Start: 11-12-2024 End: 11-12-[address] Fede Sanchez MD -Laboratory Work Phone: Start: 11-12-2024 End: 11-12-2024 ambulatory Fede Sanchez Facility:[facility] Start: 04-18-2022 End: 04-18-2022 ambulatory [facility] Work Phone: Start: 04-18-2022 End: 04-18-2022 Patient encounter procedure [facility] Immunizations Immunization Date Immunization Notes Care Provider Fa cility 07-21-2020 Covid (Pfizer) [facility] 06-30-2020 Covid (Pfizer) [facility] Payers Date Payer Category Payer Self-pay [id number] 2024 Unknown [id number] Unknown [id number] Unknown [id number] Social History Date Type Detail Facility Start: 09-06-2017 Tobacco smoking stat [facility] Unknown if ever smoked [facility] Work Phone: Start: 1960 Sex Assigned At Male [facility] Start: 09-06-2017 [facility] Medical Equipment Procedure Code Equipment Code Equipment Origin al Text Equipment Identifier Dates 1.25MM YUNG WIRE FDA Start: 05-15-2017 2.4MM VA-LCP VOL AR DR PLATE FDA Start: 05-15-2017 2.7MM SELF TAP CORTEX SCREW FDA Start: 05-15-2017 2.7MM SELF TAP CORTEX SCREW FDA Start: 05-15-2017 BONE,CRUSHED CANCELLOUS 15CC FDA Start: 05-15-2017 1.25MM YUNG WIRE FDA Start: 05-15-2017 1.8MM DRILL BIT FDA Start: 05-15-2017 2.0MM DRILL FDA Start: 05-15-2017 2.4MM CORTEX BAILEY F TAP SCREW FDA Start: 05-15-2017 2.4MM VA LOCKING SCREW FDA Start: 05-15-2017 2.4MM VA LOCKING SCREW FDA Start: 05-15-2017 2.4MM VA LOCKING SCREW FDA Start: 05-15-2017 2.4MM VA LOCKING SCREW FDA Start: 05-15-2017 1.25MM YUNG WIRE FDA Start: 05-15-2017 2.4MM VA-LCP VOL AR DR PLATE FDA Start: 05-15-2017 2.7MM SELF TAP CORTEX SCREW FDA Start: 05-15-2017 2.7MM SELF TAP CORTEX SCREW FDA Start: 05-15-2017 BONE,CRUSHED CANCELLOUS 15CC FDA Start: 05-15-2017 1.25MM YUNG WIRE FDA Start: 05-15-2017 1.8MM DRILL BIT FDA Start: 05-15-2017 2.0MM DRILL FDA Start: 05-15-2017 2.4MM CORTEX BAILEY F TAP SCREW FDA Start: 05-15-2017 2.4MM VA LOCKING SCREW FDA Start: 05-15-2017 2.4MM VA LOCKING SCREW FDA Start: 05-15-2017 2.4MM VA LOCKING SCREW FDA Start: 05-15-2017 2.4MM VA LOCKING SCREW FDA Start: 05-15-2017 Evaluation note Note Date & Type Note Facility Evaluation note No assessment information availa [facility] Work Phone: Reason for referral (narrative) Note Date & Type Note Facility Reason for referral (narrative) No reason for referral information available [facility] Work Phone: Advance Directives No Advanced Directives Records Found Advance Directive Response Recorded Date/ Time Advance Directives No April 29, 2017 7:12am Living Will No May 14 12:02pm Power of Production Scheduler No May 14, 2017 12:02pm Advance Directive Response Recorded Date/ Time Advance Directives No April 29, 2017 8:12am Chief Complaint and Reason for Visit Chief Complaint Admit Date NEEDS ORDER November 12, 2024 11:1 1am Summary Purpose Family History No Family History Records Found Additional Source Comments Goals (unrecognized section and content) Goals may be documented in a n alternate sectionGoals may be documented in an alternate section Care Teams (unrecognized sec tion and content) Team Status: Active Member Role/Relationship Status Dates Dr. Agusto Santizo MD Family Provider Active Fede Sanchez MD Primary Care Provider Active Team Status: Inactive Member Role/Relationship Status Dates Fede Sanchez MD Primary Care Provider Active St art: November 12, 2024 End: November 12, 2024 Fede Sanchez MD Attending Provider Active Start : November 12, 2024 End: November 12, 2024 Fede Sanchez MD Referring Provider Active Start : November 12, 2024 End: November 12, 2024 (unrecognized sect ion and content) No Status Records Found INFORMATION SOURCE (unrecogn ized section and content) DATE CREATED AUTHOR 11/19/2024 [facility] FOR RECORDS PERTAINING TO PATIENTS WHO ARE OR HAVE BEEN ENROLLED IN A CHEMICAL DEPENDENCY/SUBSTANCEABUSE PROGRAM, SOME INFORMATION MAY BE OMITTED. This clinical summary was aggregated from multiple sources. Caution should be exercised in using it in the provision of clinical care. This summary normalizes information from multiple sources, and as a consequence, information in this document may materially change the coding, format and clinical context of patient data. In addition, data may be omitted in some cases. CLINICAL DECISIONS SHOULD BE BASED ON THE PRIMARY CLINICAL RECORDS. [employer] provides no warranty or guarantee of the accuracy or completeness of information in this document.
[2024-11-24 13:06] LABS: PSA,Total - Annual Screen 0.59 ng/mL (0.02-4.00)
== END | disposition home or self-care (01) ==
LOC: MFPLAB 09:43
PROVIDERS: PCP Family Medicine
DX: Z12.5 Encounter for screening for malignant neoplasm of prostate (principal)
CPT/HCPCS: 36415; 84153; G0103